=== PATIENT | male | born 1995 | race Caucasian/White ===

== ENCOUNTER 2018-09-19 17:44 | Emergency (ER) | payer OTHER ==
[~2018-09-19] VITALS: Ht 172.7 cm; Wt 74.8 kg
--- NOTE | 2018-09-19 18:48 | NUR ---
ER DISCHARGE NOTE:right knee immobilizer with cratchies were provided, Patient is cleared to be discharged per ERMD, pt is aox4, on room air, with stable vital signs. pt was given dc and prescription instructions, pt was able to verbalize understanding, pt is able to ambulate with steady gait. pt took all belongings.
[2018-09-19 18:49] VITALS: BP 146/90
[2018-09-19] MEDS ORDERED: IBUPROFEN600 MG ORAL (18:51)
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
== END 2018-09-19 18:50 | disposition home or self-care (01) ==
LOC: EMR 18:15
DX: S89.91XA Unspecified injury of right lower leg, initial encounter (principal); X50.1XXA Overexertion from prolonged static or awkward postures, initial encounter; Y92.9 Unspecified place or not applicable
CPT/HCPCS: 29505; 99283